=== PATIENT | female | born 1965 | race Caucasian/White ===

== ENCOUNTER → 2016-04-27 16:49 | Outpatient (CLI) | payer BC | END | disposition home or self-care (01) | LOC: D.MAMMO 04-06 16:00 | DX: Z12.31 Encounter for screening mammogram for malignant neoplasm of breast (principal) ==

== ENCOUNTER 2019-11-17 15:11 | Outpatient (CLI) | payer BC | END 2019-11-17 23:59 | disposition home or self-care (01) | LOC: D.MAMMO 15:11 | PROVIDERS: ATTEND Clinical Nurse Specialist Family Health | DX: Z12.31 Encounter for screening mammogram for malignant neoplasm of breast (principal) ==

== ENCOUNTER → 2020-01-20 07:17 | Outpatient (CLI) | payer BC | END | disposition home or self-care (01) | LOC: D.NM 07:17 | PROVIDERS: ATTEND Nurse Practitioner | DX: R10.9 Unspecified abdominal pain (principal) ==

== ENCOUNTER 2020-06-03 06:30 | Day surgery (SDC) | payer BC ==
[2020-05-31 11:35] LABS: CALC OSMOLALITY 279 mosm/kg (275-300); CALCIUM 9.5 mg/dL (8.5-10.1); CARBON DIOXIDE 30.9 mmol/L (21.0-32.0); CHLORIDE - SERUM 100 mmol/L (98-107); CREATININE - SERUM 0.7 mg/dL (0.6-1.3); GLUCOSE 176 mg/dL (74-106); POTASSIUM - SERUM 4.2 mmol/L (3.5-5.1); SODIUM 139 mmol/L (136-145); UREA NITROGEN 8 mg/dL (7-18); eGFR NON AFRICAN AMERICAN > 90 mL/min (90-120)
[2020-05-31 12:02] LABS: BASOPHILS 0.2 % (0-2); EOSINOPHILS 1.5 % (0-7); HEMATOCRIT 43.5 % (36.0-48.0); HEMOGLOBIN 14.7 g/dL (12-16); IMMATURE GRANULOCYTES 0.2 % (0-5); LYMPHOCYTE ABS# 2.04 10x3/uL (1.18-3.74); LYMPHOCYTES 38.2 % (15-50); MCH 30.8 pg (26.0-34.0); MCHC 33.8 g/dL (31.0-37.0); MCV 91.2 fL (80.0-100.0); MEAN PLATELET VOLUME 10.4 fL (7.4-10.4); MONOCYTES 6.9 % (2-11); NEUTROPHIL ABS# 2.83 10x3/uL (1.56-6.13); RBC 4.77 10x6/uL (4.00-5.40); RDW 12.1 % (11.5-14.5); WBC 5.3 10x3/uL (4.8-10.8)
[2020-05-31 12:04] LABS: PLATELET COUNT 243 10x3/uL (130-400)
[~2020-06-03] VITALS: Ht 170.2 cm; Wt 77.1 kg
[~2020-06-03 06:30] MED LIST: BUSPAR 15 MG TA15 MG PO; BYSTOLIC10 MG PO; COZAAR100 MG PO; CYCLOBENZAPRINE10 MG PO; FLUTICASONE PRO16 GM NASAL; FUROSEMIDE20 MG PO; HUMALOG 30100 UNITS/ SC; HYDROCHLOROTHIA25 MG PO; HYDROCODON-ACE1 EA10 PO; IBUPROFEN800 MG PO; IMITREX100 MG PO; INVOKAMET 150-1 EACH PO; LANTUS INS100 UNITS/ SC; NEURONTIN 300300 MG PO; OMEPRAZOLE20 M1 PO; OZEMPIC1 MG/0.75 SC; PHENERGAN25 M1 PO; PROTONIX40 MG PO; PROZAC20 MG PO; REGLAN10 MG PO; ROXICODONE15 MG PO; SYNTHROID100 MCG PO; TRAZODONE HCL100 MG PO; VITAMIN D1000 UNI2 PO
[2020-06-03 06:54] VITALS: BP 137/70; Ht 170.2 cm; Wt 77.1 kg
[2020-06-03 07:07] LABS: HCG URINE NEGATIVE (NEGATIVE)
--- NOTE | 2020-06-03 14:02 | NUR ---
IV D/C'D WITH CANNULA INTACT, PRESSURE HELD AND DRSG PLACED. DR. DUNCAN IN ROOM TO ADDRESS PAIN MED QUESTIONS. PT REPORTS PAIN DECREASED TO 3/10 AFTER NORCO. DISCHARGED HOME IN STABLE CONDIITON
--- NOTE | 2020-06-04 08:11 | OP ---
PATIENT NAME: MADELINE ROSARIO MEDICAL RECORD: [id number] :67 LOCATION:[facility] ADMISSION DATE: SURGEON: RANI DUNCAN MD DATE OF OPERATION: 06/03/2020 PREOPERATIVE DIAGNOSES: 1. Right carpal tunnel syndrome. 2. Right trigger thumb. POSTOPERATIVE DIAGNOSES: 1. Right carpal tunnel syndrome. 2. Right trigger thumb. PROCEDURE PERFORMED: 1. Right carpal tunnel release. 2. Right trigger thumb release. INDICATIONS FOR THE PROCEDURE: Ms. Rosario is a 55-year-old female with history of pain and numbness in the right hand. She has also been having catching of the thumb. I talked with her about options for conservative versus surgical management. She has elected to proceed with surgery for a right carpal tunnel release and right trigger thumb release. Risks, benefits and alternatives of surgery were discussed with the patient and consent was obtained. DESCRIPTION OF THE PROCEDURE: The patient was met in the holding area where her identity and confirmation of procedure was performed. The right upper extremity was marked. She was taken to the operating room where she was placed supine on the operating table, and anesthesia was administered. A tourniquet was applied to the right arm and the right arm was prepped and draped in a sterile fashion. The patient received preoperative antibiotics and timeout was performed before initiating the case. On initiation of the case, the arm was exsanguinated and the tourniquet was raised. Total tourniquet time was 19 minutes. We began with the carpal tunnel release. An incision was made over the carpal tunnel in line with the fourth ray. We incised through the skin and subcutaneous tissues, dissecting down to the transverse carpal ligament. Transverse carpal ligament was then incised and a freer was then inserted. We continued our release distally until it was completely released. We then turned, continued our release proximally under direct visualization until the entire ligament was released. There was flattening and synovitis around the median nerve. The carpal tunnel was clear. We then moved to the thumb, an incision was made at the proximal crease of the thumb over the flexor tendon. We incised through the skin and subcutaneous tissues and then dissected down to the tendon. The A1 noemi was released and the tendon was retracted through the wound, did not appear to have any adhesions. The tourniquet was let down and hemostasis was obtained. The wounds were irrigated thoroughly with saline. 0.25% plain Marcaine was injected in the soft tissues at both incision sites. The wounds were then closed with 4-0 Prolene suture. A sterile dressing was applied. The patient was turned back over to anesthesia where she was awakened, extubated, and taken to recovery room in stable condition. POSTOPERATIVE PLAN: The patient is allowed to return home with her family today. She needs to limit any strenuous physical activity with the right hand and may change her dressing in 72 hours. We will see her back in clinic in 2 weeks. OPERATIVE REPORT [id number] MADELINE ROSARIO COMPLICATIONS: None. ESTIMATED BLOOD LOSS: 5 mL. ANESTHESIA: General with local anesthesia. TRANSINT:[id number] Voice Confirmation ID: [id number] DOCUMENT ID: [id number] RANI DUNCAN MD at 0811 CC: [id number] DICTATION DATE: 06/03/20 [address] [employer] [facility] [facility]: 06/03/20 1139 [facility] 06/03/[address] [id number]
== END 2020-06-03 13:35 | disposition home or self-care (01) ==
LOC: D.OPS 06:30
PROVIDERS: Anesthesiology; ATTEND Orthopaedic Surgery
DX: G56.01 Carpal tunnel syndrome, right upper limb (principal); M65.311 Trigger thumb, right thumb; I10 Essential (primary) hypertension; E11.9 Type 2 diabetes mellitus without complications; E78.5 Hyperlipidemia, unspecified

== ENCOUNTER → 2020-09-13 07:04 | Outpatient (CLI) | payer BC ==
[2020-06-03 06:54] VITALS: BMI 26.7
== END | disposition home or self-care (01) ==
LOC: D.RAD 07:04
PROVIDERS: ATTEND Nurse Practitioner
DX: K21.9 Gastro-esophageal reflux disease without esophagitis (principal)

== ENCOUNTER → 2020-09-15 07:11 | Outpatient (CLI) | payer BC ==
[2020-06-03 06:54] VITALS: BMI 26.7
== END | disposition home or self-care (01) ==
LOC: D.NM 07:11
PROVIDERS: ATTEND Nurse Practitioner
DX: R11.0 Nausea (principal)